=== PATIENT | female | born 1985 | race Caucasian/White ===

== ENCOUNTER 2023-12-24 12:23 | Emergency (ER) | payer OTHER, SELFPAY ==
[2023-12-24] VITALS (15 sets, daily range): BP systolic 85–124; BP diastolic 47–68; PULSE 85–124; RESP 14–18; TEMP 35.8–36.9; O2SAT 98–100; BMI 50.2
[2023-12-24 12:49] LABS: Absolute Lymphocyte Count 1.64 X10^3/uL (0.83-4.51); Absolute Neutrophil Count 7.4 X10^3/uL (2.0-7.7); Basophil# 0.03 X10^3/uL; Basophil% 0.3 % (0-1); Eosinophil# 0.25 X10^3/uL; Eosinophils% 2.6 % (0-5); Hematocrit 21.7 % (37-47); Lymphocyte # 1.64 X10^3/ul (0.83-4.51); Lymphocyte % 16.8 % (19-41); Mean Corp Hgb Conc 25.8 g/dL (32-36); Mean Corpuscular Hgb 16.5 pg (27.0-32.0); Mean Corpuscular Volume 63.8 fL (81-99); Mean Platelet Vol. 9.1 fl (6.2-12.0); Monocyte# 0.38 X10^3/uL; Monocyte% 3.9 % (0-10); NRBC Flagged by Analyzer 0 % (0-5); Neutrophil # 7.41 X10^3/uL (2.7-7.7); Neutrophil % 75.6 % (47-70); POSITIVE COUNT YES; Platelet Count 592 K/mm3 (150-450); RBC Distribution Width CV 17.9 % (11.6-14.6); RBC Distribution Width SD 40.9 fl (35.1-43.9); White Blood Count 9.8 K/mm3 (4.4-11.0)
[2023-12-24 12:51] LABS: Differential Indicated SCAN CRITERIA MET; Hemoglobin 5.6 g/dL (12.0-15.0)
--- NOTE | 2023-12-24 12:53 | EX.ED.DYSGE1 ---
HPI History of Present Illness Chief Complaint: Abn Labs Informant: patient Narrative Narrative: Patient is a 38-year-old female with history of hidradenitis suppurativa as well as anemia (currently being evaluated outpatient by hematology/oncology) presenting for what sounds like blood transfusion. Outpatient outpatient labs which showed a hemoglobin of 5.6 today and her hemoglobin 1 week ago was 6.0. She is sent to the ER for transfusion. Patient denies any bleeding but notes that she does have multiple chronic wounds associated with her hidradenitis. She does not get menstrual period's. She has a history of PCOS. She denies any black or blood in her stool. Denies any other source of bleeding. Has never had a blood transfusion before. Is amenable to blood transfusion. No other complaints or concerns at this time. Notes that she is chronically short of breath but it correlates that with having COVID in 2021. Denies any change in her shortness of breath/dyspnea on exertion. Denies any lightheadedness or dizziness. Denies associated chest pain. No other complaints or concerns verbalized at this time. [facility] Medical History (Updated 12/24/23 @ 16:[address] Karen Bravo DO) Hidradenitis suppurativa PCOS (polycystic ovarian syndrome) Home Medications cyanocobalamin (vitamin B-12) 1,000 mcg tablet 1,000 mcg PO DAILY 12/24/23 [History Last Taken Unknown] doxycycline hyclate 100 mg tablet 100 mg PO BID 12/24/23 [History Last Taken Unknown] ferrous sulfate 325 mg (65 mg iron) tablet (FeroSul) 325 mg PO BID 12/24/23 [History Last Taken Unknown] Social History Smoking Status: Never smoker ROS ROS ED Constitutional Constitutional ED: Denies chills or fever(s) Eyes Eyes: Denies change in vision Cardiovascular Cardiovascular: Denies chest pain Respiratory/Chest Respiratory/Chest: Reports dyspnea on exertion; Denies cough or dyspnea Gastrointestinal Gastrointestinal: Denies abdominal pain, melena, nausea or vomiting Musculoskeletal Musculoskeletal: Denies arthralgias or myalgias Integumentary Reports other Details: Wounds associated with hidradenitis suppurativa- worsening over past year Neurologic Neurologic: Denies headache(s) or weakness Hematologic/Lymphatic Hematologic/Lymphatic: Denies easy bleeding or easy bruising EXAM Physical Exam Const Vital Signs: 12/24/23 12:24 12/24/23 12:23 12/24/23 14:15 Temperature 96.4 F L Temperature Source Temporal Pulse Rate 124 H 124 H 90 Respiratory Rate 14 14 18 Respiratory Effort Respiratory Pattern Blood Pressure 92/65 92/65 109/57 L Blood Pressure Mean 74 74 74 Blood Pressure Source Blood Pressure Position Blood Pressure Location Pulse Ox 99 99 100 Oxygen Delivery Method Room Air Room Air Room Air 12/24/23 14:50 12/24/23 14:52 12/24/23 15:05 Temperature 97.6 F L 97.8 F Temperature Source Temporal Temporal Pulse Rate 91 90 Respiratory Rate 18 18 Respiratory Effort Normal Non-Labored Respiratory Pattern Normal Blood Pressure 99/52 L 103/52 L Blood Pressure Mean 67 69 Blood Pressure Source Monitor Monitor Blood Pressure Position Semi-Fowlers Semi-Fowlers Blood Pressure Location Right Arm Right Arm Pulse Ox 98 100 Oxygen Delivery Method Room Air Room Air 12/24/23 15:30 12/24/23 16:05 Temperature 97.7 F L Temperature Source Temporal Pulse Rate 90 89 Respiratory Rate 18 18 Respiratory Effort Respiratory Pattern Blood Pressure 95/47 L 106/59 L Blood Pressure Mean 63 74 Blood Pressure Source Monitor Blood Pressure Position Semi-Fowlers Blood Pressure Location Right Arm Pulse Ox 99 98 Oxygen Delivery Method Room Air Positive well nourished, well developed and obese General Appearance ED: well developed, NAD and pallor Nutritional Appearance: obese HEENT Reports moist mucous membranes Eyes PERRL General Eye ED: Yes pale conjunctiva Neck supple Chest Wall inspection of chest normal and palpation of chest normal Resp normal respiratory effort and clear to auscultation bilaterally Cardio regular rate and regular rhythm GI normal to inspection, nondistended, normoactive bowel sounds and non-tender Extremity normal to inspection General Extremety ED: Negative for edema General Extremity: Negative for edema Neuro oriented x3 Sensorium / Orientation: alert Motor Exam: Negative for general weakness Psych mental status grossly normal Skin Skin Narrative: Significant ulcerated chronic wounds in the skin folds underneath the right breast and right abdomen with associated drainage and slight bleeding. There is no associated erythema or associated lymphangitic streaking. Nontender. General Skin Exam: pallor MDM MDM MDM Narrative Medical decision making narrative: Patient is evaluated for outpatient anemia. Hemoglobin is rechecked here and it does confirm that is 5.6. I suspect her source of anemia are these chronic wounds. She currently is on doxycycline 100 mg daily but is supposed to be on it twice a day. Is amenable to blood transfusion will give 2 units of packed red blood cells. Vital signs significant for low normal blood pressure 92/65 and heart rate of 124 however patient is asymptomatic. Will obtain wound culture and have patient increase her doxycycline twice a day which she is already supposed to have done. She does have outpatient follow-up with surgery and dermatology for these wounds. In addition she is established with hematology/oncology for her anemia. I did discuss the case with Dr. Marquis, oncology on-call. He is aware of the patient. He is agreeable plan of care. Informed him that I highly suspect her source of her iron deficiency anemia is blood loss associated with her wounds. He verbalized agreement and understanding with this. Lab Data Attestation: I reviewed the patient's lab results. Labs: Laboratory Results - last 24 hr 12/24/23 12/24/23 12:42 12:52 WBC 9.8 RBC 3.40 L Hgb 5.6 L* Hct 21.7 L MCV 63.8 L MCH 16.5 L MCHC 25.8 L RDW Std Deviation 40.9 RDW Coeff of Rasheed 17.9 H Plt Count 592 H MPV 9.1 Immature Gran % (Auto) 0.800 Neut % (Auto) 75.6 H Lymph % (Auto) 16.8 L [place] % (Auto) 3.9 Eos % (Auto) 2.6 Baso % (Auto) 0.3 Absolute Neuts (auto) 7.4 Absolute Lymphs (auto) 1.64 Nucleated RBC % 0 Differential Comment SCANNED Diff Path Review May foll Hypochromasia 2+ Anisocytosis 2+ Microcytosis 2+ PT 14.6 INR 1.1 Sodium 135 L Potassium 3.8 Chloride 104 Carbon Dioxide 23.0 Anion Gap 8 BUN 13 Creatinine 0.68 Estim Creat Clear Calc 157.59 Est GFR (MDRD) Af Amer 125 Est GFR (MDRD) Non-Af 103 BUN/Creatinine Ratio 19.2 Glucose 102 Calcium 8.9 Antibody Screen NEGATIVE Crossmatch See Detail Management Discussion w/another healthcare provider: [facility] Discharge Plan Triage Chief Complaint: Abn Labs ED Provider: Karen Bravo Dx/Rx/DC Orders Clinical Impression: Acute on chronic anemia, Chronic wound, History of hidradenitis suppurativa Instructions: ED Anemia, Type Not Specified (Adult) Prescriptions: No Action cyanocobalamin (vitamin B-12) 1,000 mcg tablet 1,000 mcg PO DAILY ferrous sulfate [FeroSul] 325 mg (65 mg iron) tablet 325 mg PO BID doxycycline hyclate 100 mg tablet 100 mg PO BID Primary Care Provider: Lee Hsieh Referrals: Lee Hsieh MD [Primary Care Provider] - Activity Restrictions/Additional Instructions: Please follow-up with general surgery as well as dermatology as we discussed for your wounds. Continue to follow-up with hematology for your anemia. As we discussed increase your doxycycline to twice a day. Will contact you if we need to add further antibiotics pending your wound culture. Disposition Disposition: Home, Self Care
[2023-12-24 13:00] LABS: International Normalized Ratio 1.1; Prothrombin Time (Protime)PT. 14.6 SECONDS (11.7-14.9)
[2023-12-24 13:05] LABS: Anion Gap 8 (5-15); BUN 13 mg/dL (7-18); BUN/Creat Ratio 19.2 RATIO (10-20); Calcium,Total 8.9 mg/dL (8.5-10.1); Chloride 104 mmol/L (98-107); Creatinine, Serum 0.68 mg/dL (0.55-1.02); EST Glomerular Filtration Rate 103 mL/min (>60); Est Glom Filt Rate - Afr Amer 125 mL/min (>60); Estimated Creatinine Clearance 157.59 ml/min; Glucose 102 mg/dL (74-106); Potassium 3.8 mmol/L (3.5-5.1); Sodium Level 135 mmol/L (136-145)
[2023-12-24 13:44] LABS: Anisocytosis 2+; Differential Comment SCANNED; Hypochromasia 2+; Microcytosis 2+
[2023-12-25 15:52] LABS: Pathologist Review Reviewed
== END 2023-12-24 19:38 | disposition home or self-care (01) ==
PROVIDERS: Emergency Provider Emergency Medicine; PCP Family Medicine; Visit Provider Emergency Medicine
DX: D50.0 Iron deficiency anemia secondary to blood loss (chronic) (principal); L98.499 Non-pressure chronic ulcer of skin of other sites with unspecified severity; R06.02 Shortness of breath; L73.2 Hidradenitis suppurativa; E28.2 Polycystic ovarian syndrome; E66.9 Obesity, unspecified
CPT/HCPCS: 36430; 80048; 85025; 85610; 86850; 86900; 86901; 86920; 86922; 87070; 87077; 87186; 87205; 99282; J7040; P9016; A4216

== ENCOUNTER 2024-06-10 13:09 | Emergency (ER) | payer OTHER, SELFPAY ==
[2024-06-10 13:10] VITALS: BP 156/83; PULSE 103; RESP 16; TEMP 35.9; O2SAT 93; BMI 55.7
--- NOTE | 2024-06-10 13:54 | VDLE_ITS ---
Reason For Study: LLE Pain RIGHT LEFT FV is compressible, spontaneous, phasic, GSV is normal. competent and demonstrates normal CFV is compressible, spontaneous, phasic, augmentation. competent, and demonstrates normal Procedure augmentation. This is a venous duplex using B-mode, color FV is compressible, spontaneous, phasic, flow and spectral Doppler. competent and demonstrates normal Exam performed portable in ED. augmentation. The exam was diagnostic. Acute deep vein thrombosis is noted in the The study was technically difficult. POP V. It is dilated and NONCOMPRESSIBLE. A preliminary report was called and/or faxed Acute deep vein thrombosis is noted in the to Dr. Woo. T/P Trunk. It is dilated and NONCOMPRESSIBLE. Acute deep vein thrombosis is noted in the PTV. It is dilated and NONCOMPRESSIBLE. LT PerV is compressible. VL/Venous Duplex US, Unilateral Interpretation Summary Acute deep vein thrombosis is noted in the left popliteal vein, tibioperoneal t runk vein, posterior tibial vein Ordering Physician: Brayan Woo Referring Physician: Lee Hsieh Performed By: Antonio Javier, RVSernia
--- NOTE | 2024-06-10 13:55 | EDS_ITS ---
HPI History of Present Illness HPI Narrative: Patient presents with left calf pain that has been intermittent over the last 4 days. Patient states she went to the urgent care at [facility] today and was referred to the emergency department for possible DVT. Patient describes her pain as cramping. Patient states nothing makes it better and nothing makes it worse. Patient denies any trauma or injury. Patient denies any fevers or chills. Patient denies any paresthesias or weakness. Chief Complaint: Lower Extremity Injury Informant: patient Onset/Context/Timing Onset: Days (4) Context: Gradual Onset Timing: Intermittent Quality of Pain: - (Cramping) Location: Left calf Worsened by: Nothing Relieved by: Nothing Associated Symptoms Associated Symptoms: Negative for Parasthesia, Weakness or Loss of Funtion [facility] Medical History (Updated 06/10/24 @ 15:[address] Brayan Woo DO) Iron deficiency anemia PCOS (polycystic ovarian syndrome) Hidradenitis suppurativa Home Medications ?Medication ?Instructions ?Recorded ?Last Taken ?Type cyanocobalamin (vitamin B-12) 1,000 mcg PO DAILY 12/24/23 Unknown History 1,000 mcg tablet ferrous sulfate 325 mg (65 mg 325 mg PO BID 12/24/23 Unknown History iron) tablet (FeroSul) cholecalciferol (vitamin D3) 1,250 50,000 unit PO QWEEK 06/10/24 Unknown History mcg (50,000 unit) capsule gabapentin 100 mg capsule 100 mg PO BID PRN pain 06/10/24 Unknown History norethindrone acetate 1.5 1 tab PO DAILY 06/10/24 Unknown History mg-ethinyl estradiol 30 mcg tablet (Aurovela) rivaroxaban 15 mg tablet (Xarelto) 15 mg PO BID #42 TABLETS 06/10/24 Unknown Rx Allergy/AdvReac Type Severity Reaction Status Date / Time erythromycin base AdvReac Intermediate Vomiting Verified 06/10/24 13:10 Surgical History no surgical history no surgical history Social History Smoking Status: Never smoker ROS ROS ED Constitutional Constitutional ED: Denies chills or fever(s) Eyes Eyes: Denies blurry vision or change in vision ENT ENT ED: Denies rhinorrhea or sore throat Cardiovascular Cardiovascular: Denies chest pain or palpitations Respiratory/Chest Respiratory/Chest: Denies cough or dyspnea Gastrointestinal Gastrointestinal: Denies nausea or vomiting Genitourinary Genitourinary ED: Denies dysuria or hematuria Musculoskeletal Musculoskeletal: Denies back pain or neck pain Integumentary Denies abscess or rash Neurologic Neurologic: Denies headache(s) or weakness Allergic/Immunologic Allergic/Immunologic ED: Denies mouth swelling or urticaria EXAM Physical Exam Const Vital Signs: 06/10/24 13:10 Temperature 96.7 F L Temperature Source Temporal Pulse Rate 103 H Respiratory Rate 16 Blood Pressure 156/83 H Blood Pressure Mean 107 Pulse Ox 93 Oxygen Delivery Method Room Air Positive well nourished and well developed General Appearance ED: well developed and NAD Neck full ROM and supple Extremity Extremity Narrative: There is tenderness over the left posterior calf. There is no edema or ecchymosis. There is no bony crepitance or step-off. There is no pain with dorsiflexion of the ankle. Pedal pulses are equal bilaterally. Sensation is intact to light touch bilaterally in the lower extremities. Strength is 5/5 bilaterally in the lower extremities. Neuro oriented x3, CN's II-XII intact bilaterally, moves all extremities and no senso ry deficits noted Sensorium / Orientation: alert Motor Exam: strength 5/5 throughout Psych mental status grossly normal MDM MDM MDM Narrative Medical decision making narrative: Differential diagnosis includes calf strain, DVT, and electrolyte abnormality. Venous duplex of the left lower extremity will be obtained to assess for DVT. Basic metabolic profile will be obtained to assess for electrolyte abnormality and renal function. Lab Data Attestation: I reviewed the patient's lab results. Lab results narrative: Patient metabolic profile was reviewed and was essentially within normal limits. Labs: Laboratory Results - last 24 hr 06/10/24 14:31 Sodium 138 Potassium 3.9 Chloride 108 H Carbon Dioxide 24.0 Anion Gap 6 BUN 11 Creatinine 0.50 L Estim Creat Clear Calc 228.79 Est GFR (MDRD) Af Amer 177 Est GFR (MDRD) Non-Af 147 BUN/Creatinine Ratio 22.0 H Glucose 91 Calcium 8.9 Radiography Diagnostic Testing: Venous duplex of left lower extremity was obtained. There is DVT noted in the popliteal vein, posterior tibial vein, and posterior tibialis vein. There is no evidence of DVT above the knee. Treatment and Re-Evaluation Narrative: Patient was advised of her findings. Patient was given her first dose of Xarelto here. Patient was given a prescription for Xarelto. Patient was instructed to follow-up with her primary care physician in 5 to 7 days. Patient was instructed to return if worse in any way. Patient understood and was agre eable with the plan. All questions were answered. Discharge Plan Triage Chief Complaint: Lower Extremity Injury ED Provider: Brayan Woo Dx/Rx/DC Orders Clinical Impression: Acute deep vein thrombosis (DVT) of left lower extremity, Iron deficiency anemia Instructions: ED Deep Vein Thrombosis (DVT) Prescriptions: New Xarelto 15 mg tablet 15 mg PO BID Qty: 42 0RF No Action cyanocobalamin (vitamin B-12) 1,000 mcg tablet 1,000 mcg PO DAILY ferrous sulfate [FeroSul] 325 mg (65 mg iron) tablet 325 mg PO BID norethindrone ac-eth estradiol [Aurovela 1.5/ (21)] 1.5-30 mg-mcg tablet 1 tab PO DAILY cholecalciferol (vitamin D3) 1,250 mcg (50,000 unit) capsule 50,000 unit PO QWEEK gabapentin 100 mg capsule 100 mg PO BID PRN (Reason: pain) Primary Care Provider: Lee Hsieh Referrals: Lee Hsieh MD [Primary Care Provider] - 1-2 Weeks Print Language: Syriac Disposition Disposition: Home, Self Care
[2024-06-10 15:02] LABS: Anion Gap 6 (5-15); BUN 11 mg/dL (7-18); Calcium,Total 8.9 mg/dL (8.5-10.1); Chloride 108 mmol/L (98-107); EST Glomerular Filtration Rate 147 mL/min (>60); Est Glom Filt Rate - Afr Amer 177 mL/min (>60); Estimated Creatinine Clearance 228.79 ml/min; Glucose 91 mg/dL (74-106); Potassium 3.9 mmol/L (3.5-5.1); Sodium Level 138 mmol/L (136-145)
[2024-06-10 15:32] VITALS: BP 108/72; PULSE 69; RESP 16; TEMP 36.7; O2SAT 100
== END 2024-06-10 15:33 | disposition home or self-care (01) ==
PROVIDERS: Emergency Provider Emergency Medicine; PCP Family Medicine; Visit Provider Emergency Medicine
DX: I82.432 Acute embolism and thrombosis of left popliteal vein (principal); I82.442 Acute embolism and thrombosis of left tibial vein; I82.452 Acute embolism and thrombosis of left peroneal vein; D50.9 Iron deficiency anemia, unspecified; M79.662 Pain in left lower leg
CPT/HCPCS: 80048; 93971; 99283; A4216